=== PATIENT | male | born 1940 | race Caucasian/White ===

== ENCOUNTER 2017-03-22 09:35 | Day surgery (SDC) | payer MEDICARE, BC ==
[2017-03-21 09:33] VITALS: BMI 27.3
[~2017-03-22 09:35] MED LIST: Cyclopentolate 1% Opth Drop 2 ML BOT FS SCH; Phenylephrine HCl 2.5% Ophth Soln 5 ML BOT FS SCH
[2017-03-22] MEDS ORDERED: Phenylephrine HCl 2.5% Ophth Soln 5 ML BOT ONE (09:52)
[2017-03-22] MEDS ORDERED: Cyclopentolate 1% Opth Drop 2 ML BOT ONE (09:52)
[2017-03-22] MEDS ORDERED: Midazolam HCl 2 mg/2 ml Vial ONE (13:42)
[2017-03-22] MEDS ORDERED: Fentanyl 100 MCG/2 ML VIAL ONE ×2 (13:42→16:27)
[2017-03-22] MEDS ORDERED: Lidocaine 1% PF 5 ML VIAL ONE (16:26)
[2017-03-22] MEDS ORDERED: Propofol 200 MG/20 ML VIAL ONE (16:26)
[2017-03-22] MEDS ORDERED: ePHEDrine/0.9% NaCl/PF SYRINGE 50 mg/10 ml ONE (16:26)
--- NOTE | 2017-03-22 20:40 | OP ---
DATE OF PROCEDURE: 03/22/2017 PREOPERATIVE DIAGNOSES: Dislocated intraocular lens and epiretinal membrane, right eye. POSTOPERATIVE DIAGNOSES: Dislocated intraocular lens and epiretinal membrane, right eye. PROCEDURE PERFORMED: Pars plana vitrectomy, repositioning of intraocular lens membrane peel, right e marck. SURGEON: Carlos Woodard M.D. ANESTHESIA: General endotracheal anesthesia. PROCEDURE IN DETAIL: The patient was identified in the preoperative holding area. Appropriate infor med consent, the planned surgical procedure on the right eye had been obtained. The patient was maria sported to the operative suite where appropriate cardiopulmonary monitoring was established. Local a nesthesia was obtained using retrobulbar and modified Van Lint lid block using 50/50 mixture of 4% li docaine and 0.75% bupivacaine. The patient was prepped and draped in the usual sterile manner for op hthalmic surgery on the right eye. Lid speculum was placed in the right eye. The 25-gauge trocars w ere placed in conjunctiva and sclera supratemporally, inferotemporally, and supranasally. Infusion l ine was placed inferotemporally. Light pipe and vitreous cutter were inserted into the eye. Core of vitrectomy was performed. Residual of Soemmering's ring was removed from the anterior vitreous. Fr agmatome was inserted into the eye to remove remaining fragments of the Soemmering's ring. Indocyani ne green dye was infused onto posterior pole x1, identifying the epiretinal membrane. This was eleva aguila using end-gripping forceps and the IOL was at this time present on the retinal surface. This was elevated using end end-gripping forceps and the nasal haptic was externalized using a 30 gauge needl e, with low temperature cautery. The process was repeated with the temporal haptic and the IOL was noted to be well fixated. Tisseel glue was used to close the sclerotomy sites. Eye was noted t o retain pressure well. Retrobulbar Kenalog and subconjunctival Ancef were placed. Atropine and ant ibiotic ointment were placed and the eye was patched and shielded. The patient was taken to the post operative recovery unit in good condition having suffered no immediate perioperative period. DISCHARGE INSTRUCTIONS: Patient was instructed to keep patch and shield on, avoid lifting and bendin g, and follow up in the morning with Dr. Woodard.
== END 2017-03-22 17:27 | disposition home or self-care (01) ==
LOC: SDC 09:35
PROVIDERS: ATTEND Ophthalmology Retina Specialist
PROC: 08943ZZ Drainage of Right Vitreous, Percutaneous Approach (ICD-10-PCS; principal; 2017-03-22)
DX: T85.22XA Displacement of intraocular lens, initial encounter (principal); H35.371 Puckering of macula, right eye; Z98.890 Other specified postprocedural states
CPT/HCPCS: 96374; J2001; J2250; J2704; J3010

== ENCOUNTER 2018-12-13 05:34 | Observation (INO) | payer MEDICARE, BC ==
[2018-12-13] MEDS ORDERED: Morphine 4 MG/ML VIAL ONE (05:55)
[2018-12-13 06:08] LABS: #Eosinphils 0.2 thou/uL (0.0-0.7); #Lymphocytes 0.8 thou/uL (1.20-3.40); #Monocytes 0.9 thou/uL (0.11-0.59); #Neutrophils 5.6 thou/uL (1.40-6.50); %Basophils 0.6 % (0.0-1.0); %Eosinophils 2.5 % (0.0-10.0); %Monocytes 11.7 % (0.0-10.0); %Neutrophils 74.2 % (42.0-75.0); Hemoglobin 13.7 g/dL (14.0-18.0); Mean Corpuscular HGB CONC 36.2 g/dL (32.0-36.0); Mean Corpuscular Hemoglobin 34.3 pg (27.0-31.0); Mean Corpuscular Volume 94.7 fL (78.0-98.0); Mean Platelet Volume 6.5 fL (7.4-10.4); Platelet Count 207 thou/uL (130-400); RBC Distribution Width 12.8 % (11.5-14.5); Red Blood Cell (RBC) Count 3.99 mill/uL (4.70-6.10); White Blood Cell (WBC) Count 7.6 thou/uL (4.8-10.8)
[2018-12-13 06:19] LABS: ALT (SGPT) 19 U/L (8-55); AST (SGOT) 36 U/L (5-34); Albumin 4.1 g/dL (3.4-4.8); Alkaline Phosphatase 57 U/L (40-150); Anion Gap 17 mmol/L (10-20); BUN (Urea Nitrogen) 18 mg/dL (8.4-25.7); Bilirubin, Total 0.6 mg/dL (0.2-1.2); CK (CPK) 57 U/L (30-200); Calc. Creatinine Clearance 0 mL/min (70-130); Calcium 9.5 mg/dL (7.8-10.44); Carbon Dioxide 20 mmol/L (23-31); Chloride 89 mmol/L (98-107); Estimated GFR-MDRD 43; Globulin 2.7 g/dL (2.4-3.5); Glucose 98 mg/dL (83-110); Magnesium 1.7 mg/dL (1.6-2.6); Potassium 3.9 mmol/L (3.5-5.1); Protein, Total 6.8 g/dL (5.8-8.1); Sodium 122 mmol/L (136-145)
--- NOTE | 2018-12-13 07:52 | ULT ---
EXAM: LEFT LOWER EXTREMITY DOPPLER VENOUS ULTRASOUND PROVIDED CLINICAL HISTORY: Left leg pain and edema for 2 days TECHNIQUE: Grayscale and color Doppler sonography with spectral analysis was performed of the left common femora l, femoral, popliteal, posterior tibial, greater saphenous and profunda femoral veins. FINDINGS: There is normal compression, flow and augmentation seen within the deep venous structures o f the left lower extremity. IMPRESSION: No sonographic evidence for left lower extremity deep venous thrombosis.
[2018-12-13] MEDS ORDERED: Ketorolac Tromethamine 30 MG/ML VIAL IVP PRN (10:44)
[2018-12-13] MEDS ORDERED: Ondansetron PF 4 MG/2 ML Vial IVP PRN (10:47)
[2018-12-13] MEDS ORDERED: Senokot S 8.6-50 MG TAB PO PRN (10:47)
[2018-12-13] MEDS ORDERED: Ondansetron ODT 4 MG TAB PO PRN (10:47)
[2018-12-13] MEDS ORDERED: Acetaminophen 650 MG Suppository PR PRN (10:47)
[2018-12-13] MEDS ORDERED: traMADol HCl 50 MG TAB PO SCH (11:00)
[2018-12-13] MEDS ORDERED: Sodium Chloride 0.9% 1,000 ML IV SCH (11:00)
[2018-12-13 11:01] VITALS: BMI 27.3
--- NOTE | 2018-12-13 11:37 | PDOC.HHP ---
Hospitalist HPI - History of Present Illness Left leg pain History of Present Illness: Mr. Kyle is a pleasant 78 year old presenting with pain in the left leg, specifically the knee which has been gradually worsening since 3 days ago. He does not recall any injury and denies any falls. States he is sedentary, however reports him going for a long walk on Sunday which is not typical for him and more activity than he is used to. He has noted swelling to the left knee and reports discomfort in his left ankle. The pain is a 10/10 at certain times but he is unable to pin point exactly where most of his pain is. He denies any redness or warmth to the join. No associated fevers, chills or sweats. Has not had any bruising. Today he was unable to tolerate the pain, has had gradually worsening ROM, and though he was able to bear weight on it, he was shuffling to his truck due to the pain with movement. Denies noting any numbness or weakness. Has not had any back pain. History of bursitis in left hip requiring injections done by Dr. Moreno, but denies any changes in chronic hip pain. ED Course: Patient had labs done in ED which were notable for hyponatremia (Na+ 122). Serum osmolality low, 127. Renal function elevated with Cr. 1.55, he was given 1L NS. He had a venous doppler of LLE which was unremarkable and D-dimer was negative. He has been tachy with HR of 107. Sats normal. For the pain he was treated with Morphine but patient states it did not help. Hospitalist ROS - Review of Systems Constitutional: denies: fever, chills, sweats, weakness, malaise, other Eyes: denies: pain, vision change, conjunctivae inflammation, eyelid inflammation, redness, other ENT: denies: ear pain, ear discharge, nose pain, nose discharge, nose congestion , mouth pain, mouth swelling, throat pain, throat swelling, other Respiratory: denies: cough, dry, shortness of breath, hemoptysis, SOB with excertion, pleuritic pain, sputum, wheezing, other Cardiovascular: denies: chest pain, palpitations, orthopnea, paroxysmal noc. 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 - Family History Family History: reports: no pertinent history - Social History Smoking Status: Never smoker Alcohol: reports: Heavy (Drinks daily, 4 glasses of whiskey and/or wine a day. No history of withdrawal seizures.) Living Situation: With Family Activity level: independent ambulation - Exam General Appearance: NAD, awake alert Eye: PERRL, anicteric sclera Eye - other findings: squinting of right eye, chronic ENT: normocephalic atraumatic, no oropharyngeal lesions, moist mucosa Neck: supple, symmetric, no JVD, no thyromegaly, no lymphadenopathy Heart: RRR Respiratory: CTAB, no wheezes, no rales, no ronchi, normal chest expansion, no tachypnea Respiratory - other findings: hold his breath on examination of leg, states bracing himself for the pain Gastrointestinal: soft, non-tender, no palpable masses, no guarding, distended ( chronic, obese) Extremities: no cyanosis, no clubbing, no edema Extremeties - other findings: swelling to LLE, tenderness of posterior and lateral knee, and post ankle Skin: normal turgor, no lesions, no rashes Skin - other findings: No ertyhema or warmth to left leg Neurological: CN's grossly intact, normal sensation to touch, no weakness Musculoskeletal: normal tone, normal strength Musculoskeletal - other findings: limited ROM in left leg due to pain Psychiatric: normal affect, normal behavior, A&O x 3 Hospitalist Results - Labs Result Diagrams: 12/13/18 05:53 12/13/18 05:53 Lab results: WBC 7.6 thou/uL (4.8-10.8) 12/13/18 05:53 Hgb 13.7 g/dL (14.0-18.0) L 12/13/18 05:53 Hct 37.8 % (42.0-52.0) L 12/13/18 05:53 MCV 94.7 fL (78.0-98.0) 12/13/18 05:53 Plt Count 207 thou/uL (130-400) 12/13/18 05:53 Neutrophils % 74.2 % (42.0-75.0) 12/13/18 05:53 Sodium 122 mmol/L (136-145) L 12/13/18 05:53 Potassium 3.9 mmol/L (3.5-5.1) 12/13/18 05:53 Chloride 89 mmol/L (98-107) L 12/13/18 05:53 Carbon Dioxide 20 mmol/L (23-31) L 12/13/18 05:53 BUN 18 mg/dL (8.4-25.7) 12/13/18 05:53 Creatinine 1.55 mg/dL (0.7-1.3) H 12/13/18 05:53 Glucose 98 mg/dL (83-110) 12/13/18 05:53 Calcium 9.5 mg/dL (7.8-10.44) 12/13/18 05:53 Total Bilirubin 0.6 mg/dL (0.2-1.2) 12/13/18 05:53 AST 36 U/L (5-34) H 12/13/18 05:53 ALT 19 U/L (8-55) 12/13/18 05:53 Alkaline Phosphatase 57 U/L (40-150) 12/13/18 05:53 Creatine Kinase 57 U/L (30-200) 12/13/18 05:53 Serum Total Protein 6.8 g/dL (5.8-8.1) 12/13/18 05:53 Albumin 4.1 g/dL (3.4-4.8) 12/13/18 05:53 Hospitalist H&P A/P - Problem (1) Left leg pain Code(s): M79.605 - PAIN IN LEFT LEG Status: Acute Assessment and Plan: Likely musculoskeletal, will obtain an MRI of left knee. Will follow-up on results and consult ortho if needed. Continue tramadol for pain. Hold on Toradol given JENNIFER, will try lidocaine patches as well. (2) Hyponatremia Code(s): E87.1 - HYPO-OSMOLALITY AND HYPONATREMIA Status: Acute Assessment and Plan: Likely due to dehydration though clinically does not appear dry, he has had decreased intake due to pain. Also on HCTZ, which we will hold. UA requested, including urine osmolality, creatinine, protein as per Dr. Melvin. Continue IV and recheck BMP in afternoon. (3) Tachycardia Code(s): R00.0 - TACHYCARDIA, UNSPECIFIED Status: Acute Assessment and Plan: Possibly due to uncontrolled pain, and/or JENNIFER. BB started per Dr. Melvin, d/c irbesartan. D-dimer negative and sats normal. No sign of infection. Lactic acid added on. Continue to monitor HR. (4) JENNIFER (acute kidney injury) Code(s): N17.9 - ACUTE KIDNEY FAILURE, UNSPECIFIED Status: Acute Assessment and Plan: S/p 1 L NS in ED. Continue IVF, monitor Na+ trend. As mentioned will hold HCTZ and irbesartan also held. (5) Hypertension Code(s): I10 - ESSENTIAL (PRIMARY) HYPERTENSION Status: Acute Assessment and Plan: Continue BB as mentioned above, if elevated BP, plan is to give low dose Amlodipine. - Plan Plan: Patients case discussed with Dr. Melvin who agrees with plan as above.
[2018-12-13] MEDS ORDERED: Clopidogrel Bisulfate 75 MG TAB PO SCH (12:00)
[2018-12-13 12:01] LABS: Lactic Acid 1.2 mmol/L (0.5-2.2)
[2018-12-13 12:12] LABS: ALT (SGPT) 19 U/L (8-55); AST (SGOT) 32 U/L (5-34); Albumin 4.2 g/dL (3.4-4.8); Alkaline Phosphatase 61 U/L (40-150); Anion Gap 14 mmol/L (10-20); BUN (Urea Nitrogen) 17 mg/dL (8.4-25.7); Bilirubin, Total 0.6 mg/dL (0.2-1.2); Calc. Creatinine Clearance 51 mL/min (70-130); Calcium 9.6 mg/dL (7.8-10.44); Carbon Dioxide 24 mmol/L (23-31); Chloride 92 mmol/L (98-107); Estimated GFR-MDRD 51; Globulin 2.6 g/dL (2.4-3.5); Glucose 100 mg/dL (83-110); Potassium 3.8 mmol/L (3.5-5.1); Protein, Total 6.8 g/dL (5.8-8.1); Sodium 126 mmol/L (136-145)
[2018-12-13] MEDS: Sodium Chloride 0.9% 1,000 ML IV SCH ×2 (12:44→23:15)
[2018-12-13] MEDS: traMADol HCl 50 MG TAB PO PRN (12:48)
--- NOTE | 2018-12-13 12:49 | MRI ---
MR OF THE LEFT KNEE WITHOUT CONTRAST INDICATION: Left knee pain TECHNIQUE: Axial and coronal PD fat sat, sagittal T2 fat sat, sagittal PD turbo spin echo and T1 wm nal images were obtained of the left knee. COMPARISON: None. FINDINGS: Joint effusion: None. Semimembranosus-medial gastrocnemius popliteal cyst: None. Ligaments: The ACL, PCL, MCL and LCLC are intact. Extensor mechanism: Intact. Menisci: There is a horizontally linear tear involving the body and posterior horn of the medial meni scus. There is some central free edge fraying involving the body of the lateral meniscus. Articular cartilage: There is mild to moderate diffuse chondral thinning involving the medial femorot ibial joint compartment. Osseous structures: Very tiny marginal osteophytes are seen involving the major compartments of the l eft knee. Popliteus and IT band: There is increased T2 signal seen involving the musculature of the popliteus s uspicious for strain. The popliteus tendon is intact. IT band is intact. IMPRESSION: 1. Minimal to mild osteoarthrosis of the left knee. 2. Medial meniscal tear. Central free edge fraying of the lateral meniscal body. 3. Grade 1 strain of the popliteus.
[2018-12-13] MEDS: Acetaminophen 325 MG TAB PO PRN ×2 (14:27→21:46)
[2018-12-13 14:53] LABS: Bacteria/HPF None Seen HPF (None Seen); Bilirubin Negative (Negative); Blood, Urine Negative (Negative); Clarity Clear (Clear); Glucose, Urine (Dipstick) Normal (Negative); Leukocyte Negative Leu/uL (Negative); Nitrite Negative (Negative); Protein, Urine (Dipstick) Negative (Neg-Trace); RBC/HPF 0-3 HPF (0-3); Squamous Epithelial None Seen HPF (0-3); Urobilinogen Normal mg/dL (Less than 2); WBC/HPF 0-3 HPF (0-3)
[2018-12-13 14:54] LABS: Urine Culture Reflex No No
[2018-12-13 15:05] LABS: Creatinine, Urine 38.72 mg/dL (63-166); Protein, Urine Random Quant Less than 10 mg/dL (1-14); Sodium, Urine 62 mmol/L (Not Available); Urea Nitrogen, Random Urine 247 mg/dl
[2018-12-13] MEDS: HYDROcodone/Acetaminophen 5/325 mg Tablet PO PRN (18:09)
[2018-12-13] MEDS: Ubidecarenone 50 MG CAP PO SCH (20:40)
[2018-12-13] MEDS: Ezetimibe 10 MG TAB PO SCH (20:40)
[2018-12-13] MEDS: Pregabalin 75 MG CAP PO SCH (20:41)
--- NOTE | 2018-12-13 20:45 | CON ---
DATE OF CONSULTATION: 12/13/2018 HISTORY OF PRESENT ILLNESS: Mr. Kyle is a 78-year-old white male, who states that without a history of trauma or increased activity, began having pain in the left knee and down to the ankle starting approximately three days ago. He developed some swelling in the left knee and very difficult time ambulating, it got to the point where he could not put any weight on the left lower extremity and presented to the emergency room. The patient denies any history of gout and has had no trauma to the left knee. He did have an MRI performed of the left knee, which showed minimal to mild osteoarthrosis of the left knee, medial meniscus tear, and a central free edge fraying of the lateral meniscus body and grade 1 strain of the popliteus. I was consulted for evaluation of the left knee. PHYSICAL EXAMINATION: On physical exam, the patient has mild swelling in the knee. He is tender in the medial and lateral joint lines. He is nontender with movement of the patella. The left knee is warmer than the right knee. There is no erythema and no open wounds. Any attempts of range of motion causes pain. PROCEDURE NOTE: After prepping the knee with Betadine using a small amount of lidocaine, 18-gauge needle was inserted into the knee and approximately 10 mL of cloudy synovial fluid was removed from the left knee joint. It will be sent for Gram stain, culture and sensitivity, cell count, and crystals. The left knee was then injected with 2 mL of dexamethasone 4 mL of lidocaine and Marcaine. I will follow up with the patient tomorrow. Job ID: [id number]
[2018-12-13] MEDS ORDERED: Non-Formulary Item 1 EACH (Irbesartan [Irbesartan] 300 MG) PO SCH (21:00)
[2018-12-13 21:17] LABS: RBC Count-Automated (BF) 1842 /cumm; WBC/Nucleated-Auto (BF) 13616 uL
[2018-12-13 21:23] LABS: Body Fluid Source Synovial Fluid; Tube # 1 of 1
[2018-12-13 21:24] LABS: BF Color Yellow; Clarity Cloudy/Turbid (Clear)
[2018-12-13 21:55] LABS: BF Segmented Neutrophils 83 %; Cell Count Non Hematic 17 %
[2018-12-14 06:20] LABS: Anion Gap 14 mmol/L (10-20); Carbon Dioxide 16 mmol/L (23-31); Chloride 100 mmol/L (98-107); Sodium 125 mmol/L (136-145)
[2018-12-14 06:28] LABS: #Eosinphils 0.1 thou/uL (0.0-0.7); #Lymphocytes 0.5 thou/uL (1.20-3.40); #Monocytes 0.1 thou/uL (0.11-0.59); #Neutrophils 6.9 thou/uL (1.40-6.50); %Eosinophils 1.8 % (0.0-10.0); %Lymphocytes 6.1 % (21.0-51.0); %Monocytes 1.1 % (0.0-10.0); %Neutrophils 91.1 % (42.0-75.0); BUN (Urea Nitrogen) 19 mg/dL (8.4-25.7); Calc. Creatinine Clearance 59 mL/min (70-130); Estimated GFR-MDRD 60; Glucose 136 mg/dL (83-110); Mean Corpuscular HGB CONC 35.2 g/dL (32.0-36.0); Mean Corpuscular Hemoglobin 34.9 pg (27.0-31.0); Mean Corpuscular Volume 99.1 fL (78.0-98.0); Mean Platelet Volume 7.4 fL (7.4-10.4); Platelet Count 204 thou/uL (130-400); RBC Distribution Width 13.1 % (11.5-14.5); White Blood Cell (WBC) Count 7.6 thou/uL (4.8-10.8)
[2018-12-14] MEDS: Sodium Chloride 0.9% 1,000 ML IV SCH (08:27)
[2018-12-14] MEDS: Venlafaxine HCl XR 75 MG CAP PO SCH (08:28)
[2018-12-14] MEDS: traMADol HCl 50 MG TAB PO PRN ×2 (08:29→16:59)
[2018-12-14] MEDS: Clopidogrel Bisulfate 75 MG TAB PO SCH (08:29)
[2018-12-14] MEDS: Famotidine/PF 20 mg/2ml Vial SLOW IVP SCH (08:30)
[2018-12-14] MEDS: Pregabalin 75 MG CAP PO SCH ×2 (08:30→20:03)
[2018-12-14] MEDS: Lidocaine 5% Patch TD SCH (08:38)
[2018-12-14] MEDS ORDERED: predniSONE 20 MG TAB PO SCH (10:45)
[2018-12-14] MEDS: Acetaminophen 325 MG TAB PO PRN ×2 (11:03→20:03)
[2018-12-14] MEDS ORDERED: Magnesium 2 GM/50 ML 2 GM in Premix Bag 1 BAG IVPB SCH (12:15)
[2018-12-14] MEDS ORDERED: Amlodipine 5 MG TAB PO SCH (12:15)
[2018-12-14] MEDS ORDERED: Sodium Bicarbonate Tab 325 MG TAB PO SCH (12:15)
--- NOTE | 2018-12-14 12:28 | PDOC.HOSPP ---
- Subjective Encounter Date: 12/14/18 Encounter Time: 12:25 Subjective: 78 y/o msle with HTN and DJD admitted with acute worsening left knee pain associated with difficulty ambulation. Found to have elevated creat and low sodium. MRI showed meniscal tear. Had athrocentesis and steroid injection with interval improvement of the pain. No chest pain or fever. - Objective Vital Signs & Weight: Vital Signs (12 hours) Temp Pulse Resp BP BP BP Pulse Ox 12/14/18 08:00 142/83 H 12/14/18 07:56 97.7 F 83 18 148/83 H 98 12/14/18 04:00 97.6 F 75 18 151/89 H 151/89 H 96 Weight Weight 179 lb 14.355 oz I&O: 12/13/18 12/14/18 12/15/18 06:59 06:59 06:59 Intake Total 2461 Output Total 850 Balance 1611 Result Diagrams: 12/14/18 05:46 12/14/18 05:46 Hospitalist ROS - Medication Medications: Active Medications Generic Name Dose Route Start Last Admin Trade Name Freq PRN Reason Stop Dose Admin Acetaminophen 650 mg 12/13/18 10:47 12/14/18 11:03 Tylenol PO 650 mg Q4H PRN Administration Headache/Fever/Mild Pain (1-3) Hydrocodone Bitart/Acetaminophen 1 tab 12/13/18 10:47 12/13/18 18:09 [place] 5/325 PO 1 tab Q4H PRN Administration Moderate Pain (4-6) Clopidogrel Bisulfate 75 mg 12/14/18 09:00 12/14/18 08:29 Plavix PO 75 mg QAM ERNESTO Administration Coenzyme Q10 100 mg 12/13/18 21:00 12/13/18 20:40 Coenzyme Q10 PO 100 mg QPM ERNESTO Administration Ezetimibe 10 mg 12/13/18 21:00 12/13/18 20:40 Zetia PO 10 mg QPM ERNESTO Administration Famotidine 20 mg 12/14/18 09:00 12/14/18 08:30 Pepcid SLOW IVP 20 mg DAILY ERNESTO Administration Lidocaine 2 patch 12/14/18 09:00 12/14/18 08:38 Lidoderm 5% Patch TD 2 patch DAILY ERNESTO Administration Metoprolol Succinate 25 mg 12/14/18 09:00 12/14/18 08:29 Toprol Xl PO 25 mg DAILY ERNESTO Administration Pantoprazole Sodium 40 mg 12/14/18 09:00 12/14/18 08:29 Protonix PO 40 mg QAM ERNESTO Administration Prednisone 20 mg 12/14/18 10:45 12/14/18 11:03 Prednisone PO 12/14/18 12:45 20 mg NOW ERNESTO Administration Pregabalin 75 mg 12/13/18 21:00 12/14/18 08:30 Lyrica PO 75 mg BID ERNESTO Administration Sodium Chloride 10 ml 12/13/18 21:00 12/14/18 08:38 Flush - Normal Saline IVF 10 ml Q12HR ERNESTO Administration Tramadol HCl 50 mg 12/13/18 11:20 12/14/18 08:29 Ultram PO 50 mg Q6H PRN Administration Moderate Pain (4-6) Venlafaxine HCl 150 mg 12/14/18 09:00 12/14/18 08:28 Effexor Xr PO 150 mg DAILY ERNESTO Administration - Exam General Appearance: awake alert Eye: anicteric sclera ENT: normocephalic atraumatic Neck: supple, no JVD Heart: RRR Respiratory: no wheezes, no rales, no ronchi, normal chest expansion, no tachypnea Gastrointestinal: soft, non-tender, non-distended, normal bowel sounds Gastrointestinal - other findings: obese Extremities: no cyanosis, no edema Neurological: CN's grossly intact, no focal deficits Psychiatric: normal affect, A&O x 3 Hosp A/P (1) JENNIFER (acute kidney injury) Code(s): N17.9 - ACUTE KIDNEY FAILURE, UNSPECIFIED Status: Acute (2) SIADH (syndrome of inappropriate ADH production) Status: Acute (3) Hyponatremia Code(s): E87.1 - HYPO-OSMOLALITY AND HYPONATREMIA Status: Acute (4) Left knee injury Code(s): S89.92XA - UNSPECIFIED INJURY OF LEFT LOWER LEG, INITIAL ENCOUNTER Status: Acute (5) Meniscal injury Code(s): S83.8X9A - SPRAIN OF OTH PARTS OF UNSPECIFIED KNEE, INIT ENCNTR Status: Acute (6) Tachycardia Code(s): R00.0 - TACHYCARDIA, UNSPECIFIED Status: Acute (7) Hypertension Code(s): I10 - ESSENTIAL (PRIMARY) HYPERTENSION Status: Acute - Plan DC IVF given Hyponatremia/SIADH Add amlodipine to get adequate BP control. Continue to hold Irbesartan and HCTZ Start 1500 fluid restriction and monitor renal functoion and sodium Replete serum magnesium PT/OT to continue. Appreciate Ortho input. awaiting synovial fluid culture. Analgesic as needed
[2018-12-14] MEDS: HYDROcodone/Acetaminophen 5/325 mg Tablet PO PRN (14:22)
--- NOTE | 2018-12-14 17:17 | PRG ---
DATE OF SERVICE: 12/14/2018 SUBJECTIVE: Mr. Kyle states that his right knee is feeling much better. The patient has been afebrile. Vital signs are stable. The right knee has mild effusion. The patient is able to actively fully extend and flex the knee approximately 110 degrees with minimal pain. Laboratory this morning shows white count 7.6, hemoglobin 14. His Gram stain from the fluid from the right knee showed many wbc's, no organisms seen. No other results are available. PLAN: The patient appears to have inflammatory problem in the right knee, it is possibly gout or pseudogout. The dexamethasone injected into the knee appears to have significantly helped decrease his pain. He will be started on prednisone 20 mg daily. We will see what the other results of the joint fluid will show. Job ID: [id number]
[2018-12-14] MEDS: Sodium Bicarbonate Tab 325 MG TAB PO SCH (20:03)
[2018-12-14] MEDS: Ubidecarenone 50 MG CAP PO SCH (20:03)
[2018-12-14] MEDS: Ezetimibe 10 MG TAB PO SCH (20:03)
[2018-12-14] MEDS: Lidocaine Patch Removal 1 EACH TOP SCH (20:04)
[2018-12-15] MEDS: Acetaminophen 325 MG TAB PO PRN ×3 (00:02→22:06)
[2018-12-15 07:45] LABS: Anion Gap 13 mmol/L (10-20); BUN (Urea Nitrogen) 21 mg/dL (8.4-25.7); Calc. Creatinine Clearance 65 mL/min (70-130); Calcium 9.3 mg/dL (7.8-10.44); Carbon Dioxide 24 mmol/L (23-31); Chloride 95 mmol/L (98-107); Estimated GFR-MDRD 67; Glucose 114 mg/dL (83-110); Potassium 3.8 mmol/L (3.5-5.1); Sodium 128 mmol/L (136-145); Uric Acid 6.1 mg/dL (3.5-7.2)
[2018-12-15] MEDS: Pregabalin 75 MG CAP PO SCH ×2 (08:59→20:08)
[2018-12-15] MEDS: Clopidogrel Bisulfate 75 MG TAB PO SCH (08:59)
[2018-12-15] MEDS: Famotidine/PF 20 mg/2ml Vial SLOW IVP SCH (08:59)
[2018-12-15] MEDS: Lidocaine 5% Patch TD SCH (09:00)
[2018-12-15] MEDS: Amlodipine 5 MG TAB PO SCH (09:00)
[2018-12-15] MEDS: Sodium Bicarbonate Tab 325 MG TAB PO SCH ×2 (09:00→20:07)
[2018-12-15] MEDS: Venlafaxine HCl XR 75 MG CAP PO SCH (09:00)
[2018-12-15] MEDS: predniSONE 20 MG TAB PO SCH (09:00)
--- NOTE | 2018-12-15 19:56 | PDOC.HOSPP ---
- Subjective Encounter Date: 12/15/18 Encounter Time: 10:53 Subjective: 78 y/o msle with HTN and DJD admitted with acute worsening left knee pain associated with difficulty ambulation. Evaluation showed elevated creat and low sodium. MRI showed meniscal tear. Had arthrocentesis and steroid injection with interval improvement of the pain. No chest pain or fever. - Objective Vital Signs & Weight: Vital Signs (12 hours) Temp Pulse Resp BP BP BP Pulse Ox 12/15/18 12:00 131/82 12/15/18 11:41 98.2 F 67 18 131/82 98 12/15/18 09:00 78 12/15/18 08:00 97.6 F 78 20 132/78 132/78 99 Weight Weight 179 lb 14.355 oz I&O: 12/14/18 12/15/18 12/16/18 06:59 06:59 06:59 Intake Total 2461 1850 960 Output Total 850 Balance 1611 1850 960 Result Diagrams: 12/14/18 05:46 12/15/18 07:10 Hospitalist ROS - Medication Medications: Active Medications Generic Name Dose Route Start Last Admin Trade Name Freq PRN Reason Stop Dose Admin Acetaminophen 650 mg 12/13/18 10:47 12/15/18 15:01 Tylenol PO 650 mg Q4H PRN Administration Headache/Fever/Mild Pain (1-3) Hydrocodone Bitart/Acetaminophen 1 tab 12/13/18 10:47 12/14/18 14:22 [place] 5/325 PO 1 tab Q4H PRN Administration Moderate Pain (4-6) Amlodipine Besylate 5 mg 12/15/18 09:00 12/15/18 09:00 Norvasc PO 5 mg DAILY ERNESTO Administration Clopidogrel Bisulfate 75 mg 12/14/18 09:00 12/15/18 08:59 Plavix PO 75 mg QAM ERNESTO Administration Coenzyme Q10 100 mg 12/13/18 21:00 12/14/18 20:03 Coenzyme Q10 PO 100 mg QPM ERNESTO Administration Ezetimibe 10 mg 12/13/18 21:00 12/14/18 20:03 Zetia PO 10 mg QPM ERNESTO Administration Lidocaine 2 patch 12/14/18 09:00 12/15/18 09:00 Lidoderm 5% Patch TD 2 patch DAILY ERNESTO Administration Metoprolol Succinate 25 mg 12/14/18 09:00 12/15/18 09:00 Toprol Xl PO 25 mg DAILY ERNESTO Administration Miscellaneous Medication 1 each 12/14/18 21:00 12/14/18 20:04 Lidocaine Patch Removal TOP 1 each 2100 ERNESTO Administration Pantoprazole Sodium 40 mg 12/14/18 09:00 12/15/18 09:00 Protonix PO 40 mg QAM ERNESTO Administration Prednisone 20 mg 12/15/18 09:00 12/15/18 09:00 Prednisone PO 20 mg DAILY ERNESTO Administration Pregabalin 75 mg 12/13/18 21:00 12/15/18 08:59 Lyrica PO 75 mg BID ERNESTO Administration Sodium Bicarbonate 650 mg 12/14/18 21:00 12/15/18 09:00 Bicarbonate, Sodium PO 650 mg BID ERNESTO Administration Sodium Chloride 10 ml 12/13/18 21:00 12/15/18 09:01 Flush - Normal Saline IVF 10 ml Q12HR ERNESTO Administration Tramadol HCl 50 mg 12/13/18 11:20 12/14/18 16:59 Ultram PO 50 mg Q6H PRN Administration Moderate Pain (4-6) Venlafaxine HCl 150 mg 12/14/18 09:00 12/15/18 09:00 Effexor Xr PO 150 mg DAILY ERNESTO Administration - Exam General Appearance: awake alert General - other findings: afebrile Eye: anicteric sclera ENT: normocephalic atraumatic, moist mucosa Neck: supple Heart: RRR, no murmur Respiratory: no wheezes, no rales, no ronchi, normal chest expansion Gastrointestinal: soft, non-tender, non-distended, normal bowel sounds Extremities: no edema Extremeties - other findings: mild fullness of left knee with mild tenderness Neurological: CN's grossly intact, no focal deficits Psychiatric: normal affect, A&O x 3 Hosp A/P (1) JENNIFER (acute kidney injury) Code(s): N17.9 - ACUTE KIDNEY FAILURE, UNSPECIFIED Status: Acute (2) SIADH (syndrome of inappropriate ADH production) Status: Acute (3) Hyponatremia Code(s): E87.1 - HYPO-OSMOLALITY AND HYPONATREMIA Status: Acute (4) Left knee injury Code(s): S89.92XA - UNSPECIFIED INJURY OF LEFT LOWER LEG, INITIAL ENCOUNTER Status: Acute (5) Meniscal injury Code(s): S83.8X9A - SPRAIN OF OTH PARTS OF UNSPECIFIED KNEE, INIT ENCNTR Status: Acute (6) Tachycardia Code(s): R00.0 - TACHYCARDIA, UNSPECIFIED Status: Acute (7) Hypertension Code(s): I10 - ESSENTIAL (PRIMARY) HYPERTENSION Status: Acute (8) Arthritis of left knee Code(s): M17.12 - UNILATERAL PRIMARY OSTEOARTHRITIS, LEFT KNEE Status: Acute - Plan Awaiting synovial fluid culture Continue amlodipine Continue 1500 fluid restriction and monitor renal function and electrolytes Check for crystals in synovial fluid PT/OT to continue. Analgesic as needed
[2018-12-15] MEDS: Ubidecarenone 50 MG CAP PO SCH (20:07)
[2018-12-15] MEDS: Ezetimibe 10 MG TAB PO SCH (20:07)
[2018-12-15] MEDS: Lidocaine Patch Removal 1 EACH TOP SCH (20:49)
[2018-12-16] MEDS: Acetaminophen 325 MG TAB PO PRN ×3 (04:20→11:58)
[2018-12-16 06:58] LABS: Anion Gap 11 mmol/L (10-20); BUN (Urea Nitrogen) 22 mg/dL (8.4-25.7); Calc. Creatinine Clearance 66 mL/min (70-130); Calcium 8.6 mg/dL (7.8-10.44); Carbon Dioxide 24 mmol/L (23-31); Chloride 96 mmol/L (98-107); Estimated GFR-MDRD 69; Glucose 79 mg/dL (83-110); Potassium 3.5 mmol/L (3.5-5.1); Sodium 127 mmol/L (136-145)
[2018-12-16] MEDS: predniSONE 20 MG TAB PO SCH (08:23)
[2018-12-16] MEDS: Pregabalin 75 MG CAP PO SCH (08:24)
[2018-12-16] MEDS: Venlafaxine HCl XR 75 MG CAP PO SCH (08:24)
[2018-12-16] MEDS: Amlodipine 5 MG TAB PO SCH (08:24)
[2018-12-16] MEDS: Sodium Bicarbonate Tab 325 MG TAB PO SCH (08:24)
[2018-12-16] MEDS: Clopidogrel Bisulfate 75 MG TAB PO SCH (08:24)
[2018-12-16] MEDS: Lidocaine 5% Patch TD SCH (08:32)
[2018-12-16] MEDS ORDERED: Famotidine 20 MG TAB PO SCH (09:00)
--- NOTE | 2018-12-16 12:35 | PRG ---
DATE OF SERVICE: 12/16/2018 SUBJECTIVE: Mr. Kyle states that his knee is doing very well. He is able to ambulate in the [place] with physical therapy without any ambulatory aids. The patient has been afebrile. Vital signs remained stable. Cultures on the left knee synovial fluid were all negative. Crystal identification is pending. IMPRESSION: Left knee pain and swelling secondary to inflammatory process, possibly it is gout or pseudogout, but we do not have the test performed for that as of yet. PLAN: No further treatment is needed by me. The patient will follow up with his medical doctor. I will be happy to see him for any future orthopedic problems. Job ID: [id number]
[2018-12-16 13:55] VITALS: BP 125/75; TEMP 97.7
--- NOTE | 2018-12-16 17:44 | PDOC.EVN ---
Event Note - Event Note Event Note: Discharge summary dictated. #[id number]
--- NOTE | 2018-12-16 18:09 | DIS ---
DATE OF ADMISSION: 12/13/2018 DATE OF DISCHARGE: 12/16/2018 PRIMARY CARE PHYSICIAN: Karolyn Carlos. DISCHARGE DIAGNOSES: 1. 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 2. Acute kidney injury. 3. Hyponatremia. 4. Syndrome of inappropriate antidiuretic hormone production. 5. Meniscal injury of left knee. 6. Tachycardia. 7. Hypertension. CONSULTS: Orthopedic Surgery. PROCEDURE PERFORMED: Arthrocentesis. HOSPITAL COURSE: A 78-year-old male with known history of hypertension and degenerative joint disease, admitted with acute worsening of left knee pain, associated with difficulty ambulating. Evaluation in the emergency room showed elevated creatinine as well as low sodium. Further evaluation with MRI of left knee showed meniscal tear. Orthopedic Surgery consult was obtained and the patient had arthrocentesis with steroid injection, which provided good interval improvement of pain and swelling. Synovial fluid analysis showed fluid to be yellow, cloudy/to be with wbc's count of 13,616 and rbc's count of 1842 with 83% neutrophil differential. Synovial fluid crystal and analysis were not performed initially, but was ordered later and result was pending at the time of discharge. The patient who had acute kidney injury on presentation was started with IV fluid with mild improvement, but later on, sodium was trending downwards, hence IV fluid was discontinued. It was initially felt the patient was volume contracted. 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 The patient was subsequently started on fluid restriction with improvement of plasma sodium level. The SIADH was thought to be related to hydrochlorothiazide treatment and that was discontinued. The patient remained stable and was observed. Synovial fluid culture after 48 hours was no growth, hence initially entertained the possibility of infectious etiology was unlikely and the patient was discharged home on oral prednisone for 14 days. PHYSICAL EXAMINATION: VITAL SIGNS: Temperature 97.7, pulse 67, respiratory rate 16, SpO2 of 97 on room air, blood pressure is 125/75. GENERAL: Healthy-looking elderly male, in no distress. Afebrile. Anicteric. Acyanotic. HEENT: Normocephalic, atraumatic. Oral mucosa is moist. CARDIOVASCULAR: Regular rhythm and rate with normal heart sounds 1 and 2. RESPIRATORY: Good air entry bilaterally with no crackle or rhonchi or use of accessory muscles. GI: Obese, soft, nontender, nondistended with normal bowel sounds. EXTREMITIES: Mild left knee fullness with minimal tenderness noted. Range of motion is normal. The patient is moving the knee, both actively and passively. UROLOGY PHYSICIAN ASSISTANT: Conscious, alert, oriented x3 with appropriate mental status. Cranial nerves 2 through 12 are grossly intact. DISCHARGE DISPOSITION: Home. DISCHARGE CONDITION: Improved. DISCHARGE MEDICATIONS: 1. Prednisone 20 mg p.o. daily for 14 days. 2. Metoprolol succinate 25 mg p.o. daily. 3. Pregabalin 75 mg p.o. b.i.d. 4. Protonix 40 mg p.o. daily. 5. Irbesartan 300 mg p.o. daily. 6. Zetia 10 mg p.o. q.p.m. 7. Plavix 75 mg p.o. daily. 8. Hydrocodone/acetaminophen 10/325 mg tablet, 0.5 to 1 tablet p.o. q.4 p.r.n. for pain. FOLLOWUP: 1. With PCP in 1 week. 2. The patient is to repeat renal function and follow up with bench worker binding of his choice. Job ID: [id number]
== END 2018-12-16 14:56 | disposition home or self-care (01) ==
LOC: ERS 05:34 → ERHOLD 06:59 → T4-B 08:19
PROVIDERS: ADMIT Internal Medicine; ATTEND Internal Medicine
PROC: 0S9D3ZZ Drainage of Left Knee Joint, Percutaneous Approach (ICD-10-PCS; principal; 2018-12-13)
DX: M17.12 Unilateral primary osteoarthritis, left knee (principal); S83.242A Other tear of medial meniscus, current injury, left knee, initial encounter; S86.112A Strain of other muscle(s) and tendon(s) of posterior muscle group at lower leg level, left leg, initial encounter; N17.9 Acute kidney failure, unspecified; E22.2 Syndrome of inappropriate secretion of antidiuretic hormone; I10 Essential (primary) hypertension; R00.0 Tachycardia, unspecified; G89.29 Other chronic pain; M25.552 Pain in left hip; Z79.02 Long term (current) use of antithrombotics/antiplatelets; Z79.899 Other long term (current) drug therapy
CPT/HCPCS: 20610; 73721; 80048 ×3; 80053 ×2; 81001; 82550 ×2; 82570; 83605; 83735; 83930; 83935; 84156; 84300; 84540; 84550; 84560; 85025 ×2; 85379; 87070; 87205; 89051; 89060; 93971; 96361 ×3; 96365; 96372; 96375; 96376; 97116 ×2; 97139; 99285; G0378 ×5; 36415; 85060; 96360; J2270; J3475; J7512; S0028

== ENCOUNTER 2019-05-28 04:41 | Observation (INO) | payer MEDICARE, BC ==
[2019-05-28 05:13] LABS: #Eosinphils 0.1 thou/uL (0.0-0.7); #Lymphocytes 0.8 thou/uL (1.20-3.40); #Monocytes 0.4 thou/uL (0.11-0.59); #Neutrophils 5.9 thou/uL (1.40-6.50); %Basophils 0.3 % (0.0-1.0); %Eosinophils 0.9 % (0.0-10.0); %Lymphocytes 10.7 % (21.0-51.0); %Monocytes 5.6 % (0.0-10.0); %Neutrophils 82.5 % (42.0-75.0); Hemoglobin 15.8 g/dL (14.0-18.0); Mean Corpuscular HGB CONC 34.1 g/dL (32.0-36.0); Mean Corpuscular Hemoglobin 31.3 pg (27.0-31.0); Mean Corpuscular Volume 91.9 fL (78.0-98.0); Mean Platelet Volume 7.7 fL (7.4-10.4); Platelet Count 239 thou/uL (130-400); RBC Distribution Width 12.6 % (11.5-14.5); Red Blood Cell (RBC) Count 5.06 mill/uL (4.70-6.10); White Blood Cell (WBC) Count 7.1 thou/uL (4.8-10.8)
[2019-05-28 05:19] LABS: INR-International Normal Ratio 0.9; PTT 28.4 SEC (22.9-36.1); Prothrombin Time 12.2 SEC (12.0-14.7)
[2019-05-28 06:04] LABS: Bacteria/HPF None Seen HPF (None Seen); Bilirubin Negative (Negative); Blood, Urine Negative (Negative); Clarity Clear (Clear); Glucose, Urine (Dipstick) Normal (Negative); Leukocyte 25 Leu/uL (Negative); Nitrite Negative (Negative); Protein, Urine (Dipstick) 10 mg/dL (Neg-Trace); RBC/HPF 0-3 HPF (0-3); Squamous Epithelial None Seen HPF (0-3); Urobilinogen Normal mg/dL (Less than 2)
[2019-05-28] MEDS ORDERED: Aspirin 325 MG TAB ONE (06:37)
--- NOTE | 2019-05-28 07:28 | CT ---
CT OF THE BRAIN WITHOUT CONTRAST: Date: 05/28/2019 COMPARISON: None. HISTORY: Altered mental status. Last seen normal at 10:00. TECHNIQUE: Multiple contiguous axial images were obtained in a CT of the brain without contrast. FINDINGS: There are scattered hypodensities in the subcortical and periventricular white matter, likely seconda ry to small vessel ischemic disease. No large confluent infarction is seen. There is no evidence of h ydrocephalus, intracranial hemorrhage, or extra-axial fluid collection. The calvarium and overlying soft tissues are unremarkable. The visualized paranasal sinuses and masto id air cells are well aerated. IMPRESSION: No evidence of acute intracranial abnormality. POS: [facility]
--- NOTE | 2019-05-28 07:33 | CT ---
CTA NECK AND CTA HEAD WITH CONTRAST: Date: 05/28/2019 HISTORY: Altered mental status, confusion. Slurred speech. Last seen normal at 10:00 p.m. TECHNIQUE: 1. Multiple contiguous axial images were obtained in a CTA of the neck with contrast. 3D sagittal an d coronal MIP reformats were performed. 2. Multiple contiguous axial images were obtained in a CTA of the head with contrast. 3D sagittal an d coronal MIP reformats were performed. FINDINGS: CTA NECK: No mucosal abnormality is seen in the nasopharynx, oropharynx, hypopharynx, or subglottic regions. No cervical adenopathy is seen. Degenerative changes are seen in the cervical spine. Lung apices are unremarkable. The common carotid arteries have a normal origin from the aortic arch. No significant atherosclerotic disease is seen in any of the arch vessels. The common carotid arteries are normal in appearance without significant atherosclerotic disease. The se branch into normal caliber internal and external carotid arteries which do not demonstrate signifi cant atherosclerotic disease per NASCET criteria. Both vertebral arteries are normal in appearance without significant atherosclerotic disease and form a normal appearing basilar artery. CTA HEAD: There is moderate diffuse atherosclerotic disease in cavernous portions of both internal carotid jhonny rosalie. The intracranial internal carotid arteries are normal in caliber. These branch into normal appe aring anterior and middle cerebral arteries. There is no evidence of focal stenosis, aneurysmal dilat ation, or occlusion in the anterior circulation. The basilar artery is patent. Posterior cerebral arteries and cerebellar arteries are patent. There i s no evidence of focal stenosis, occlusion, or aneurysmal dilatation of the posterior circulation. IMPRESSION: 1. Unremarkable CTA of neck. 2. Unremarkable CTA of head. Dr. Khoury notified of findings at 0530 hours on 05/28/2019. CODE CR.
--- NOTE | 2019-05-28 07:36 | RAD ---
EXAM: Single view of the chest HISTORY: Altered mental status COMPARISON: 01/25/2016 FINDINGS: Single view of the chest shows a normal sized cardiomediastinal silhouette. There is no senthil dence of consolidation, mass, or pleural effusion. The bones are unremarkable. IMPRESSION: No evidence of acute cardiopulmonary disease
[2019-05-28] MEDS ORDERED: Calcium Carbonate 500 MG ChewTAB PO PRN (07:53)
[2019-05-28] MEDS ORDERED: Loperamide HCl 2 MG CAP PO PRN (07:53)
[2019-05-28] MEDS ORDERED: hydrALAZINE 20 MG/ML VIAL SLOW IVP PRN (07:53)
[2019-05-28] MEDS ORDERED: Loratadine 10 MG TAB PO PRN (07:53)
[2019-05-28] MEDS ORDERED: Senokot S 8.6-50 MG TAB PO PRN (07:53)
[2019-05-28] MEDS ORDERED: Bisacodyl 10 MG SUPP PR PRN (07:53)
[2019-05-28] MEDS ORDERED: Artificial Tears 18 DROP/0.9 ML EA EYE PRN (07:53)
[2019-05-28] MEDS ORDERED: Ondansetron PF 4 MG/2 ML Vial IVP PRN (07:53)
[2019-05-28] MEDS ORDERED: Ondansetron ODT 4 MG TAB PO PRN (07:53)
[2019-05-28] MEDS ORDERED: Sodium Chloride 0.65% Nasal 44 ML BOT EA NARE PRN (07:53)
[2019-05-28] MEDS ORDERED: Diabetic Tussin 200 MG/10 ML UDCUP PO PRN (07:53)
[2019-05-28] MEDS: Aspirin 325 mg Enteric Coated Tablet PO SCH (08:42)
[2019-05-28] MEDS: Enoxaparin Sodium 40 MG/0.4 ML SYRINGE SC SCH (08:43)
[2019-05-28] MEDS ORDERED: Famotidine 20 MG TAB PO SCH (09:00)
[2019-05-28 09:52] VITALS: BMI 30.5
--- NOTE | 2019-05-28 11:46 | RAD ---
EXAM: Modified barium swallow with speech therapist HISTORY: Feeding difficulties and dysphasia FINDINGS/IMPRESSION: A modified barium swallow was performed by the speech therapist. A video was performed. No aspiration or penetration was seen during the examination. Please see dedicated speech therapy report for specific findings and recommendations.
[2019-05-28] MEDS ORDERED: HYDROcodone/Acetaminophen 10/325 mg Tablet PO PRN (13:16)
--- NOTE | 2019-05-28 13:52 | HP ---
PRIMARY CARE PHYSICIAN: [facility]. REASON FOR ADMISSION: TIA. HISTORY OF PRESENT ILLNESS: A 78-year-old male, who has previous history of TIA as well as hypertension, who was brought to emergency room for altered mental status. As per report, the patient was appeared confused to his around 3:45 a.m. As per the patient's , the patient was having word-finding difficulty and the patient was not able to answer correctly. When the patient's asked him to sit nearby, he was not doing that, but instead he was picking different objects and he was staring with his eye to objects. The patient was not able to tell his name and he was not knowing where he was and that is why the patient's concerned about and decided to call paramedics and the patient was brought to emergency room for evaluation. As per the patient's , he went to bed around 10 p.m. The patient was having word-finding difficulty, but he did not have any motor weakness. REVIEW OF SYSTEMS: All review of systems reviewed with the patient and negative except as mentioned in HPI, though review of system is limited because of his level of alertness. PAST MEDICAL HISTORY: 1. Hypertension. 2. Osteoarthritis. 3. History of recurrent TIA. PAST SURGICAL HISTORY: Multiple eye surgery for retina PAST PSYCHIATRIC HISTORY: Anxiety and depression. SOCIAL HISTORY: The patient has a history of drinking red wine almost every day. No history of smoking. No other illicit drug abuse. FAMILY HISTORY: No strong family history of premature coronary artery disease, stroke, or cancer. ALLERGIES: NO KNOWN DRUG ALLERGIES. CURRENT HOME MEDICATIONS: We are not able to verify his home medication at this point, but based on our hospital previous record, the patient is on; 1. Amlodipine 5 mg daily. 2. Plavix 75 mg daily. 3. Venlafaxine 100 mg p.o. daily. 4. Zetia 10 mg daily. 5. Irbesartan 300 mg daily. 6. Protonix 40 mg daily. 7. Lyrica 75 mg b.i.d. 8. Seroquel 50 mg p.o. at bedtime. EMERGENCY ROOM COURSE: The patient is given aspirin. PHYSICAL EXAMINATION: VITAL SIGNS: On arrival, blood pressure 152/83, pulse 85, respiratory rate 18, temperature 98, saturation 98% on room air, weight 91.7 kg. GENERAL: The patient is currently alert, awake, follows simple commands, no obvious acute distress. HEAD: Normocephalic and atraumatic. EYES: Pupils round and reactive to light. Extraocular muscle intact. Noted blepharospasm of the eye, particularly on the right side. ENT: Oropharynx within normal limits. Moist mucous membranes. No oral lesion. No pharyngeal erythema. No exudate. NECK: Supple. No JVD. No meningeal signs of irritation. LUNGS: Clear to auscultation without any rhonchi or rales. CARDIAC: S1, S2 appeared regular. No murmur. No gallop. No rub. ABDOMEN: Soft. Bowel sounds present. No tender. No organomegaly. No mass. EXTREMITIES: No edema. NEUROLOGIC: The patient is alert, awake, follows simple command, able to tell the name of the objects. He is able to tell his name and date of . Motor 5/5 in all 4 limbs. Sensation intact bilaterally. Reflexes symmetrical. No cerebellar sign. The patient does have some word-finding difficulty. IMAGING STUDIES: EKG showing right bundle-branch block pattern. CT brain based on my review no acute intracranial process. CT angiography head and neck reported as normal. Chest x-ray normal. SIGNIFICANT LABORATORY DATA: CBC: WBC 7.1, hemoglobin 15.8, platelet 239. INR 0.9. Troponin I less than 0.010. Urinalysis normal. ASSESSMENT AND PLAN: 1. Transient ischemic attack. The patient had acute episode of confusion with word-finding difficulty, suspicious for recurrent TIA. Current workup is negative. At this point, we will continue with aspirin as well as Plavix and we will consult Neurology. This patient may benefit from outpatient Holter monitoring and that is why he will need outpatient Cardiology followup. We will consult PT/OT as a part of evaluation, and we will also consult Speech Therapy to evaluate his speech. We will check lipid profile tomorrow. We will observe 24 hours on telemetry floor. 2. Hypertension. We will resume amlodipine 5 mg p.o. daily and irbesartan 300 mg p.o. daily. 3. Dyslipidemia. We will continue Lipitor 40 mg p.o. at bedtime and Zetia 10 mg daily. 4. Gastroesophageal reflux disease. We will continue Protonix 40 mg p.o. daily. 5. Anxiety and depression. Continue Seroquel 50 mg p.o. at bedtime and venlafaxine 100 mg p.o. daily. 6. Deep vein thrombosis prophylaxis. Lovenox 40 mg subcu daily. 7. Gastrointestinal prophylaxis. Protonix 40 mg p.o. daily. CODE STATUS: The patient is full code. The patient's is surrogate decision maker. DISPOSITION PLAN: Based on clinical course. As a part of TIA workup, we will obtain MRI brain and echocardiography, and we will consider discharging him tomorrow. Job ID: [id number] MTDD
--- NOTE | 2019-05-28 14:26 | MRI ---
Exam: Brain MRI without contrast HISTORY: Altered mental status. Confusion. COMPARISON: 11/29/2013 FINDINGS: Calvarial marrow signal intensity: Appropriate T1 signal Gradient echo sequence: No hemorrhage Brain parenchyma: No mass, mass effect or midline shift. Brain volume, age-appropriate. Stable partia lly empty sella. Cortical cuello-white matter differentiation: Preserved Restricted diffusion: Central arterial flow voids are maintained. Absent restricted diffusion White matter signal intensities: T2, FLAIR white matter hyperintensities due to chronic small vessel ischemic changes Sinuses: Adequate aeration of the paranasal sinuses and mastoid air cells. IMPRESSION: 1. Absent restricted diffusion. No acute infarct. 2. Chronic small vessel ischemic changes white matter. 2. Redemonstration of a partially empty sella, unchanged,
[2019-05-28] MEDS ORDERED: Clopidogrel Bisulfate 75 MG TAB PO SCH (15:30)
[2019-05-28] MEDS: Acetaminophen 325 MG TAB PO PRN (15:44)
[2019-05-28] MEDS ORDERED: Iopamidol-370 76% 500 ML 1 ML ONE (15:59)
[2019-05-28 17:36] LABS: T4 7.7 ug/dL (4.87-11.72)
[2019-05-28] MEDS ORDERED: Atorvastatin Calcium 40 MG TAB PO SCH (21:00)
[2019-05-28] MEDS ORDERED: Ezetimibe 10 MG TAB PO SCH (21:00)
[2019-05-28] MEDS: Pregabalin 75 MG CAP PO SCH (21:03)
[2019-05-29 05:20] LABS: ALT (SGPT) 16 U/L (8-55); AST (SGOT) 33 U/L (5-34); Alkaline Phosphatase 57 U/L (40-110); Anion Gap 12 mmol/L (10-20); BUN (Urea Nitrogen) 18 mg/dL (8.4-25.7); Bilirubin, Total 0.8 mg/dL (0.2-1.2); Calc. Creatinine Clearance 58 mL/min (70-130); Calcium 9.4 mg/dL (7.8-10.44); Carbon Dioxide 26 mmol/L (23-31); Cardiac Risk 5.2 (Less than 4.5); Chloride 105 mmol/L (98-107); Cholesterol 219 mg/dl (< 200 Desired); Estimated GFR-MDRD 51; Globulin 2.8 g/dL (2.4-3.5); Glucose 99 mg/dL (83-110); HDL Cholesterol 42 mg/dL (>60 Neg Risk); LDL Cholesterol, Calculated 107 mg/dL; Potassium 3.9 mmol/L (3.5-5.1); Protein, Total 6.8 g/dL (5.8-8.1); Sodium 139 mmol/L (136-145); Triglycerides 349 mg/dL (Less than 150)
[2019-05-29] MEDS: Pregabalin 75 MG CAP PO SCH (08:05)
[2019-05-29] MEDS: Aspirin 325 mg Enteric Coated Tablet PO SCH (08:07)
[2019-05-29] MEDS: Enoxaparin Sodium 40 MG/0.4 ML SYRINGE SC SCH (08:11)
[2019-05-29] MEDS ORDERED: Losartan 25 MG TAB PO SCH (09:00)
[2019-05-29] MEDS ORDERED: Clopidogrel Bisulfate 75 MG TAB PO SCH (09:00)
[2019-05-29] MEDS ORDERED: Amlodipine 5 MG TAB PO SCH (09:00)
[2019-05-29] MEDS ORDERED: Venlafaxine HCl XR 75 MG CAP PO SCH (09:00)
[2019-05-29] MEDS: Acetaminophen 325 MG TAB PO PRN (09:24)
[2019-05-29 10:58] LABS: Ref Lab Test Ordered VIT B2; Reference Lab Name LABCORP
--- NOTE | 2019-05-29 13:03 | PDOC.HOSPP ---
- Subjective Encounter Date: 05/29/19 Encounter Time: 07:45 Subjective: Patient seen and examined. No new complaints. No overnight events - Objective Vital Signs & Weight: Vital Signs (12 hours) Temp Pulse Resp BP BP Pulse Ox 05/29/19 08:07 86 151/88 H 05/29/19 07:53 98.2 F 89 14 151/88 H 98 05/29/19 04:00 98 F 81 16 137/95 H 98 Weight Weight 200 lb 12.8 oz I&O: 05/28/19 05/29/19 05/30/19 06:59 06:59 06:59 Intake Total 550 Balance 550 Result Diagrams: 05/28/19 04:55 05/29/19 04:27 Hospitalist ROS - Review of Systems ROS unobtainable: due to mental status - Medication Medications: Active Medications Generic Name Dose Route Start Last Admin Trade Name Freq PRN Reason Stop Dose Admin Acetaminophen 650 mg 05/28/19 07:53 05/29/19 09:24 Tylenol PO 650 mg Q4H PRN Administration Headache/Fever/Mild Pain (1-3) Amlodipine Besylate 5 mg 05/29/19 09:00 05/29/19 08:07 Norvasc PO 5 mg DAILY ERNESTO Administration Artificial Tears 2 drop 05/28/19 07:53 05/28/19 15:44 Tears Naturale EA EYE 2 drop PRN PRN Administration Dry Eyes Aspirin 325 mg 05/28/19 09:00 05/29/19 08:07 Ecotrin PO 325 mg DAILY ERNESTO Administration Atorvastatin Calcium 40 mg 05/28/19 21:00 05/28/19 21:04 Lipitor PO 40 mg HS ERNESTO Administration Clopidogrel Bisulfate 75 mg 05/29/19 09:00 05/29/19 08:06 Plavix PO 75 mg QAM ERNESTO Administration Ezetimibe 10 mg 05/28/19 21:00 05/28/19 21:03 Zetia PO 10 mg QPM ERNESTO Administration Enoxaparin Sodium 40 mg 05/28/19 09:00 05/29/19 08:11 Lovenox SC 40 mg 0900 ERNESTO Administration Losartan Potassium 100 mg 05/29/19 09:00 05/29/19 08:08 Cozaar PO 100 mg DAILY ERNESTO Administration Pantoprazole Sodium 40 mg 05/29/19 09:00 05/29/19 08:10 Protonix PO 40 mg QAM ERNESTO Administration Pregabalin 75 mg 05/28/19 21:00 05/29/19 08:05 Lyrica PO 75 mg BID ERNESTO Administration Quetiapine Fumarate 50 mg 05/28/19 21:00 05/28/19 21:03 Seroquel PO 50 mg HS ERNESTO Administration Sodium Chloride 10 ml 05/28/19 07:53 05/29/19 08:12 Flush - Normal Saline IVF 10 ml PRN PRN Administration Saline Flush Venlafaxine HCl 150 mg 05/29/19 09:00 05/29/19 08:09 Effexor Xr PO 150 mg DAILY ERNESTO Administration - Exam General Appearance: NAD, awake alert Eye: PERRL, anicteric sclera ENT: normocephalic atraumatic, no oropharyngeal lesions Neck: supple, symmetric, no JVD Heart: RRR, no murmur, no gallops, no rubs Respiratory: CTAB, no wheezes, no rales, no ronchi Gastrointestinal: soft, non-tender, non-distended, normal bowel sounds Extremities: no cyanosis, no clubbing, no edema Skin: normal turgor, no lesions Neurological: no focal deficits Musculoskeletal: normal tone, normal strength Hosp A/P (1) TIA (transient ischemic attack) Code(s): G45.9 - TRANSIENT CEREBRAL ISCHEMIC ATTACK, UNSPECIFIED Status: Acute (2) Dyslipidemia Code(s): E78.5 - HYPERLIPIDEMIA, UNSPECIFIED Status: Chronic (3) Obesity (BMI 30.0-34.9) Code(s): E66.9 - OBESITY, UNSPECIFIED Status: Chronic (4) Hypertension Code(s): I10 - ESSENTIAL (PRIMARY) HYPERTENSION Status: Chronic - Plan old records reviewed/req, plan discussed w/ family, speech therapy see discharge ana paula
[2019-05-29 13:10] VITALS: TEMP 98.1
[2019-05-29 13:12] VITALS: BP 138/84
--- NOTE | 2019-05-29 14:24 | DIS ---
DATE OF ADMISSION: 05/28/2019 DATE OF DISCHARGE: 05/29/2019 PRIMARY CARE PHYSICIAN: Kwan Pizano MD DISCHARGE DISPOSITION: Home. PRIMARY DISCHARGE DIAGNOSIS: Transient ischemic attack. SECONDARY DISCHARGE DIAGNOSES: 1. Obesity with BMI 30. 2. Hypertension. 3. Dyslipidemia. 4. Gastroesophageal reflux disease. 5. Anxiety and depression. PRIMARY PROCEDURE/OPERATION: None. RADIOLOGICAL INVESTIGATION: CT angiography of head and neck, normal. CT brain, normal. MRI brain, negative. Echocardiography, normal EF. Modified barium swallow showed modified diet. SIGNIFICANT LABORATORY DATA: WBC 7.1, hemoglobin 15.8, platelet 239. INR 0.9. BMP; sodium 139, potassium 3.9, BUN 18, creatinine 1.34, glucose 99, calcium 9.4. LFT normal. Triglyceride 349, cholesterol 219, LDL 107. B12 of 222. T4 of 7.7. Cortisol 12.4. Cardiac enzyme negative. Urinalysis normal. DISCHARGE MEDICATIONS: 1. Amlodipine 5 mg p.o. daily. 2. Plavix 75 mg p.o. daily. 3. Desvenlafaxine 100 mg p.o. daily. 4. Zetia 10 mg daily. 5. Hydrochlorothiazide 25 mg daily. 6. [place] 10 one tablet p.o. b.i.d. p.r.n. 7. Irbesartan 300 mg p.o. daily. 8. Protonix 40 mg p.o. daily. 9. Lyrica 75 mg p.o. b.i.d. 10. Seroquel 50 mg p.o. q.h.s. 11. Lipitor 40 mg p.o. q.h.s. CONTRAINDICATION: None. CODE STATUS: Full code. INPATIENT INVENTORY CHECKER: Dr. Pasquale Petersen, Neurology was consulted while in hospital. TEST RESULT PENDING ON DISCHARGE: None. ALLERGIES: NO KNOWN DRUG ALLERGIES. DISCHARGE PLAN: Posthospital, the patient will follow up with primary care physician in 1 week. HOSPITAL COURSE: A 78-year-old male who was having sudden onset of word-finding difficulty at home and the patient was appeared confused to his and that is why the patient was brought to emergency room for suspected stroke finding. When he presented to emergency room, the patient's symptoms resolved. Initial CT brain was negative for any acute process. The patient also had CT angio of head and neck, which was normal. Subsequently, the patient was observed on stroke floor. We did MRI, which was negative for any acute stroke. We did echocardiography, which was normal. The patient did not have any focal neurological deficit and he was able to ambulate for almost 500 feet with PT. We spoke with the family, the patient's , and updated all test result. The patient is medically stable for discharge today. We added Lipitor on his regimen. The patient had modified barium swallow with speech therapy and they recommend modified diet, which was instructed upon discharge. The patient will need outpatient speech therapy. Overall, the patient is medically stable for discharge. The patient is seen and examined at bedside today. Please see my progress note from today for further detail. Job ID: [id number]
--- NOTE | 2019-05-31 12:04 | EKG ---
Test Reason : Blood Pressure : / mmHG Vent. Rate : 079 BPM Atrial Rate : 079 BPM P-R Int : 166 ms QRS Dur : 126 ms QT Int : 380 ms P-R-T Axes : 068 -06 034 degrees QTc Int : 435 ms Normal sinus rhythm Right bundle branch block Abnormal ECG Confirmed by MALICK FRANKLIN ([id number]), assignment desk editor ESTEPHANIA CROCKETT ([id number]) on 05/31/2019 12:04:40 PM Referred By: Confirmed By:MALICK FRANKLIN
== END 2019-05-29 14:37 | disposition home or self-care (01) ==
LOC: ERS 04:41 → 2SE 07:50
PROVIDERS: ADMIT Internal Medicine; ATTEND Internal Medicine
DX: G45.9 Transient cerebral ischemic attack, unspecified (principal); I10 Essential (primary) hypertension; E78.5 Hyperlipidemia, unspecified; F41.9 Anxiety disorder, unspecified; F32.9 Major depressive disorder, single episode, unspecified; E66.9 Obesity, unspecified; K21.9 Gastro-esophageal reflux disease without esophagitis; M19.90 Unspecified osteoarthritis, unspecified site; Z68.30 Body mass index [BMI] 30.0-30.9, adult; Z79.899 Other long term (current) drug therapy
CPT/HCPCS: 70450; 70496; 70498; 70551; 71045; 74230; 80053; 80061; 82533; 82607; 84425; 84436; 84484; 85025; 85610; 85730; 93005; 93306; 96372 ×2; 97139 ×4; 97535 ×2; 99285; G0378 ×2; 36415; 81003; 81015; J1650; Q9967

== ENCOUNTER 2023-11-02 17:35 | Emergency (ER) | payer MEDICARE ==
[2023-11-02 18:57] LABS: #Basophils Less than 0.03 10x3/uL (0.0-0.2); %Basophils 0.3 % (0.0-1.0); %Lymphocytes 9.4 % (21.0-51.0); %Monocytes 7.4 % (0.0-10.0); %Neutrophils 81.6 % (42.0-75.0); Hematocrit 42.1 % (42.0-52.0); Hemoglobin 13.8 g/dL (14.0-18.0); Mean Corpuscular HGB CONC 32.8 g/dL (32.0-36.0); Mean Corpuscular Hemoglobin 31.2 pg (27.0-31.0); Mean Corpuscular Volume 95.2 fL (78.0-98.0); Mean Platelet Volume 9.1 fL (7.4-10.4); Platelet Count 200 10x3/uL (130-400); RBC Distribution Width 14.6 % (11.5-14.5); Red Blood Cell (RBC) Count 4.42 mill/uL (4.70-6.10)
[2023-11-02 19:17] LABS: Troponin I Less than 0.010 ng/mL (< 0.028)
[2023-11-02 19:22] LABS: ALT (SGPT) 24 U/L (8-55); AST (SGOT) 43 U/L (5-34); Acetaminophen Less than 10 mcg/mL (10.0-30.0); Albumin 3.8 g/dL (3.4-4.8); Alcohol 12.3 mg/dL (Less than 10); Alkaline Phosphatase 46 U/L (40-110); Anion Gap 15 mmol/L (10-20); BUN (Urea Nitrogen) 21 mg/dL (8.4-25.7); Bilirubin, Total 0.9 mg/dL (0.2-1.2); Calc. Creatinine Clearance 0 mL/min (70-130); Calcium 9.2 mg/dL (7.8-10.44); Carbon Dioxide 17 mmol/L (23-31); Chloride 107 mmol/L (98-107); Estimated GFR 47; Glucose 97 mg/dL (83-110); Magnesium 2.3 mg/dL (1.6-2.6); Potassium 4.4 mmol/L (3.5-5.1); Protein, Total 6.8 g/dL (5.8-8.1); Salicylate Less than 8.0 mg/dL (15.0-30.0); Sodium 135 mmol/L (136-145)
[2023-11-02 20:25] LABS: Bacteria/HPF None Seen HPF (None Seen); Bilirubin Negative (Negative); Blood, Urine Negative (Negative); CAUTI Indications for Culture Alt mental st,lethar; Clarity Clear (Clear); Glucose, Urine (Dipstick) Normal (Negative); Ketone, Urine Negative (Negative); Leukocyte Negative Leu/uL (Negative); Nitrite Negative (Negative); Protein, Urine (Dipstick) Negative (Neg-Trace); RBC/HPF 0-3 HPF (0-3); Specific Gravity, Urine 1.014 (1.002-1.036); Squamous Epithelial None Seen HPF (0-3); Urobilinogen Normal mg/dL (Less than 2); WBC/HPF 0-3 HPF (0-3); pH, Urine 5.5 (5.0-9.0)
[2023-11-02 20:26] LABS: Urine Culture Reflex No No
[2023-11-02 20:31] LABS: Amphetamine Not Detected (NotDetected); Barbiturates Screen Not Detected (NotDetected); Benzodiazepine Screen Not Detected (NotDetected); Cocaine Metabolite Screen Not Detected (NotDetected); Methadone Not Detected (NotDetected); Methamphetamine Not Detected (NotDetected); Opiate Screen Detected (NotDetected); Oxycodone Screen Not Detected (NotDetected); Phencyclidine (PCP) Not Detected (NotDetected); THC/Cannabinoid Screen Not Detected (NotDetected); Tricyclic Screen Detected (NotDetected)
== END 2023-11-02 20:40 | disposition home or self-care (01) ==
LOC: ERS 17:35
DX: I95.1 Orthostatic hypotension (principal); I10 Essential (primary) hypertension
CPT/HCPCS: 36415; 70450; 80053; 80306; 80307; 81001; 83735; 84484; 85025; 93005